=== PATIENT | female | born 1930 | race Caucasian/White ===

== ENCOUNTER 2017-11-28 10:41 | Outpatient (CLI) | payer OTHER ==
[~2017-11-28 10:41] MED LIST: ADULT ASPIRIN81 MG; ARICEPT5 MG; ARICEPT5 MG PO; ASA81 MG PO; BUPROPION; BUPROPION HCL75 MG; CENTRUM CARDIO; DICLOFENAC SODI50 MG PO; FLEXERIL10 MG PO; HYDROCHLOROTH12.5 M1 PO; IBUPROFEN800 MG PO; KETOROLAC TROME10 MG PO; LIPITOR; LIPITOR20 MG; MOTRIN800 MG PO; NAMENDA10 MG; NAMENDA10 MG PO; NEURONTIN800 MG; NEURONTIN800 MG PO; OMEPRAZOLE20 MG; ORPHENADRINE C100 MG PO; PRILOSEC20 MG PO; PROZAC; PROZAC20 MG; SYNTHROID100 MCG; SYNTHROID100 MCG PO; SYNTHROID112 MCG PO; TENORMIN100 MG PO; ULTRACET PO
== END 2017-11-28 10:59 | disposition home or self-care (01) ==
LOC: MAMO-SONO 10:41
DX: N60.11 Diffuse cystic mastopathy of right breast (principal); N60.12 Diffuse cystic mastopathy of left breast; Z12.31 Encounter for screening mammogram for malignant neoplasm of breast

== ENCOUNTER 2017-12-23 19:44 | Emergency (ER) | payer OTHER ==
[~2017-12-23] VITALS: Ht 160 cm; Wt 81.6 kg
== END 2017-12-23 21:22 | disposition home or self-care (01) ==
LOC: ER 19:44
DX: S20.211A Contusion of right front wall of thorax, initial encounter (principal); W18.39XA Other fall on same level, initial encounter; Y93.89 Activity, other specified; Y92.098 Other place in other non-institutional residence as the place of occurrence of the external cause; Y99.8 Other external cause status

== ENCOUNTER 2018-01-29 20:56 | Emergency (ER) | payer OTHER ==
[~2018-01-29] VITALS: Ht 152.4 cm; Wt 81.6 kg
== END 2018-01-29 23:21 | disposition home or self-care (01) ==
LOC: ER 20:56
DX: S01.02XA Laceration with foreign body of scalp, initial encounter (principal); W26.8XXA Contact with other sharp object(s), not elsewhere classified, initial encounter; Y93.89 Activity, other specified; Y92.018 Other place in single-family (private) house as the place of occurrence of the external cause; Y99.8 Other external cause status

== ENCOUNTER 2018-06-03 18:00 | Emergency (ER) | payer OTHER ==
[~2018-06-03] VITALS: Ht 160 cm; Wt 78.9 kg
[2018-06-04] MEDS ORDERED: PEPCID AC20 MG PO (00:06)
[2018-06-04] MEDS ORDERED: ORPHENADRINE C100 MG PO (00:06)
[2018-06-04] MEDS ORDERED: INTESTINEX680 M1 PO (00:06)
[2018-06-04] MEDS ORDERED: BACTRIM DS TAB1 EACH PO (00:06)
[2018-06-04] MEDS ORDERED: CELECOXIB100 MG PO (00:06)
== END 2018-06-04 00:18 ==
LOC: ER 18:00
DX: N39.0 Urinary tract infection, site not specified (principal); B96.29 Other Escherichia coli [E. coli] as the cause of diseases classified elsewhere; R53.1 Weakness

== ENCOUNTER 2018-09-17 02:23 | Emergency (ER) | payer OTHER ==
[~2018-09-17] VITALS: Ht 160 cm; Wt 80.7 kg
[~2018-09-17 02:23] MED LIST changes: +BACTRIM DS TAB1 EACH PO; +CELECOXIB100 MG PO; +INTESTINEX680 M1 PO; +PEPCID AC20 MG PO
[2018-09-17] MEDS ORDERED: DUI500 PO (04:05)
== END 2018-09-17 04:18 | disposition home or self-care (01) ==
LOC: ER 02:23
DX: S01.81XA Laceration without foreign body of other part of head, initial encounter (principal); W45.8XXA Other foreign body or object entering through skin, initial encounter; Y93.89 Activity, other specified; Y92.89 Other specified places as the place of occurrence of the external cause; Y99.8 Other external cause status

== ENCOUNTER → 2018-10-12 15:14 | Outpatient (CLI) | payer OTHER ==
[~2018-10-12 15:14] MED LIST changes: +DUI500 PO
== END | disposition home or self-care (01) ==
LOC: EKG 15:14
DX: S22.000A Wedge compression fracture of unspecified thoracic vertebra, initial encounter for closed fracture (principal); Z01.818 Encounter for other preprocedural examination; M54.14 Radiculopathy, thoracic region; Z01.810 Encounter for preprocedural cardiovascular examination

== ENCOUNTER 2018-10-29 15:17 | Emergency (ER) | payer OTHER ==
[~2018-10-29] VITALS: Ht 154.9 cm; Wt 83.0 kg
== END 2018-10-29 19:17 | disposition home or self-care (01) ==
LOC: ER 15:17
DX: K29.60 Other gastritis without bleeding (principal)

== ENCOUNTER 2018-11-04 15:06 | Emergency (ER) | payer OTHER ==
[~2018-11-04] VITALS: Ht 152.4 cm; Wt 79.8 kg
== END 2018-11-04 22:00 | disposition home or self-care (01) ==
LOC: ER 15:06
DX: S70.01XA Contusion of right hip, initial encounter (principal); S80.01XA Contusion of right knee, initial encounter; R40.0 Somnolence; E86.0 Dehydration; W18.09XA Striking against other object with subsequent fall, initial encounter; Y93.89 Activity, other specified; Y92.018 Other place in single-family (private) house as the place of occurrence of the external cause; Y99.8 Other external cause status

== ENCOUNTER 2018-11-11 06:43 | Emergency (ER) | payer OTHER ==
[~2018-11-11] VITALS: Ht 160 cm; Wt 72.6 kg
== END 2018-11-11 12:55 | disposition home or self-care (01) ==
LOC: ER 06:43
DX: R55 Syncope and collapse (principal)

== ENCOUNTER 2018-12-27 13:39 | Emergency (ER) | payer OTHER ==
[~2018-12-27] VITALS: Ht 157.5 cm; Wt 68.0 kg
[2018-12-27] MEDS ORDERED: TOPROL XL50 MG PO (13:58)
== END 2018-12-27 16:37 | disposition home or self-care (01) ==
LOC: ER 13:39
DX: N39.0 Urinary tract infection, site not specified (principal); B96.89 Other specified bacterial agents as the cause of diseases classified elsewhere